=== PATIENT | female | born 2000 | race Two or more races ===

== ENCOUNTER 2020-12-10 09:36 | Emergency (ER) | payer BC, MEDICAID ==
[~2020-12-10] VITALS: Ht 157.5 cm; Wt 83.0 kg
[2020-12-10 09:39] VITALS: BP 118/67
[2020-12-10] MEDS ORDERED: DEXAMETHASONE 10 MG/ML VIAL PO ONE (10:15)
[2020-12-10] MEDS ORDERED: IPRATROPIUM/ALBUTEROL 0.5-3(2.5)MG/3ML NEB HHN ONE (10:15)
[2020-12-10] MEDS ORDERED: ALBU6.7H11 INH (12:19)
== END 2020-12-10 13:37 | disposition home or self-care (01) ==
LOC: ER 09:36
DX: J45.901 Unspecified asthma with (acute) exacerbation (principal)
CPT/HCPCS: 71046; 94640; 99283; J1100; Z7610